=== PATIENT | female | born 1965 | race Two or more races ===

== ENCOUNTER → 2017-05-01 | Outpatient (CLI) | payer OTHER ==
[~2017-05-01] MED LIST: FLUT9.9S NS; LACT1CAP35 PO; [UNRECOGNIZED DRUG - OTHER] PO; [UNRECOGNIZED DRUG - OTHER] PO
[2017-05-01 12:12] LABS: HEMATOCRIT 43.8 % (34.6-47.8)
[2017-05-01 12:23] LABS: BLOOD UREA NITROGEN 13 mg/dL (7-18)
== END | disposition home or self-care (01) ==
LOC: STAR 10:53
PROVIDERS: ATTEND Obstetrics & Gynecology Female Pelvic Medicine and Reconstructive Surgery
DX: Z01.818 Encounter for other preprocedural examination (principal); N85.2 Hypertrophy of uterus; N39.3 Stress incontinence (female) (male); N92.0 Excessive and frequent menstruation with regular cycle
CPT/HCPCS: 36415; 71020; 80048; 85025

== ENCOUNTER 2017-05-19 05:50 | Day surgery (SDC) | payer OTHER ==
[~2017-05-19] VITALS: Ht 172.7 cm; Wt 59.0 kg
[2017-05-19] MEDS ORDERED: LACTATED RINGERS 1,000 ML IV SCH ×2 (06:22→09:08)
[2017-05-19 06:23] VITALS: BP 133/90
[2017-05-19] MEDS ORDERED: LIDOCAINE 1%, 2ML SQ PRN (06:30)
[2017-05-19 06:42] LABS: HCG UR OBC PASS
[2017-05-19] MEDS ORDERED: BUPIVACAINE/PF-EPI 0.25% 1:200K ONE (06:45)
[2017-05-19] MEDS ORDERED: ACETAMINOPHEN 500 MG TABLET ONE (06:49)
[2017-05-19] MEDS ORDERED: SCOPOLAMINE PATCH, 1.5MG PATCH.TD72 TD ONE ×2 (06:49)
[2017-05-19] MEDS ORDERED: SILVER NITRATE STICK TP ONE (06:58)
[2017-05-19] MEDS ORDERED: MIDAZOLAM 1 MG/ML, 2ML ONE (06:59)
[2017-05-19] MEDS ORDERED: FENTANYL PF 100 MCG/2ML ONE ×3 (06:59→09:31)
[2017-05-19] MEDS ORDERED: FLUORESCEIN SODIUM 500 MG/5 ML ONE (07:18)
[2017-05-19] MEDS ORDERED: ONDANSETRON 2MG/ML, 2ML ONE (07:30)
[2017-05-19] MEDS ORDERED: ROCURONIUM 10 MG/ML ONE (07:30)
[2017-05-19] MEDS ORDERED: PROPOFOL 10 MG/ML, 20ML ONE (07:30)
[2017-05-19] MEDS ORDERED: NEOSTIGMINE 1 MG/ML, 10ML ONE (07:30)
[2017-05-19] MEDS ORDERED: GLYCOPYRROLATE 0.2MG/1ML, 5ML ONE (07:30)
[2017-05-19] MEDS ORDERED: DEXAMETHASONE 4 MG/ML, 1ML ONE (07:30)
[2017-05-19] MEDS ORDERED: SUCCINYLCHOLINE 20 MG/ML, 10ML ONE (07:30)
[2017-05-19] MEDS ORDERED: CEFAZOLIN 1,000 MG ONE (07:30)
[2017-05-19] MEDS ORDERED: KETOROLAC 30 MG/1 ML ONE (07:30)
[2017-05-19] MEDS ORDERED: PROMETHAZINE 25 MG SUPP PR ONE (09:30)
[2017-05-19] MEDS ORDERED: PROMETHAZINE 25 MG/ML, 1ML IV PRN (09:30)
[2017-05-19] MEDS ORDERED: OXYcodone 5 MG/5 ML ORAL.SOL UDC PO PRN (09:30)
[2017-05-19] MEDS ORDERED: METOPROLOL 1 MG/ML, 5ML IV PRN (09:30)
[2017-05-19] MEDS ORDERED: HYDROcodone/APAP 5/325 TABLET PO PRN (09:30)
[2017-05-19] MEDS ORDERED: EPHEDRINE 50 MG/ML, 1ML IVPush PRN (09:30)
[2017-05-19] MEDS ORDERED: hydrALAzine 20 MG/ML, 1ML IV PRN (09:30)
[2017-05-19] MEDS ORDERED: ONDANSETRON 2MG/ML, 2ML IVPush PRN ×2 (09:30)
[2017-05-19] MEDS ORDERED: IBUPROFEN 600 MG TABLET PO PRN (09:30)
[2017-05-19] MEDS ORDERED: MIDAZOLAM 1 MG/ML, 2ML IV PRN (09:30)
[2017-05-19] MEDS ORDERED: HYDROmorphone 1 MG/ML, 1ML IV PRN (09:30)
[2017-05-19] MEDS ORDERED: LABETALOL 5MG/ML, 20ML IV PRN (09:30)
[2017-05-19] MEDS ORDERED: HYDROcodone/APAP 7.5-325MG/15ML UDC PO PRN (09:30)
[2017-05-19] MEDS ORDERED: OXYcodone 5 MG/5 ML ORAL.SOL UDC ONE (09:31)
[2017-05-19] MEDS: FENTANYL PF 100 MCG/2ML IV PRN ×2 (09:33→09:42)
== END 2017-05-19 12:35 | disposition home or self-care (01) ==
LOC: OUT 05:50
PROVIDERS: ATTEND Obstetrics & Gynecology Female Pelvic Medicine and Reconstructive Surgery
DX: D25.9 Leiomyoma of uterus, unspecified (principal); N80.0 Endometriosis of uterus
CPT/HCPCS: 58571; 81025; 88307; J0330; J0690; J1100; J1885; J2250; J2405; J2704; J2710; J3010; S2900; J3490